=== PATIENT | male | born 1990 | race African-American/Black ===

== ENCOUNTER 2017-10-23 04:13 | Emergency (ER) | payer OTHER ==
[~2017-10-23] VITALS: Ht 175.3 cm; Wt 74.8 kg
[2017-10-23] MEDS ORDERED: REMERON15 MG PO (04:23)
[2017-10-23 04:48] LABS: HEMATOCRIT 45.1 % (42.0-52.0); MCH 30.5 pg (26.0-34.0); MCHC 35.5 g/dL (28.0-37.0); MCV 85.9 fL (80.0-100.0); RBC 5.25 mil/uL (4.50-6.00); RDW 13.8 % (10.5-14.5); WBC 7.4 thou/uL (4.0-11.0)
[2017-10-23 04:52] LABS: CALCIUM 8.9 mg/dL (8.5-10.1); POTASSIUM 3.7 mmol/L (3.5-5.1)
[2017-10-23 04:58] LABS: ALBUMIN 4.1 g/dL (3.4-5.0); TOTAL BILIRUBIN 0.7 mg/dL (<0.1-1.0); TOTAL PROTEIN 7.9 g/dL (6.4-8.2)
[2017-10-23 05:25] VITALS: BP 117/61
== END 2017-10-23 05:25 | disposition home or self-care (01) ==
LOC: ER 04:13
PROVIDERS: Emergency Medicine
DX: F10.129 Alcohol abuse with intoxication, unspecified (principal); F43.0 Acute stress reaction; F41.0 Panic disorder [episodic paroxysmal anxiety]; F17.200 Nicotine dependence, unspecified, uncomplicated

== ENCOUNTER 2020-10-12 07:15 | Emergency (ER) | payer OTHER ==
[~2020-10-12] VITALS: Ht 175.3 cm; Wt 77.1 kg
[~2020-10-12 07:15] MED LIST: REMERON15 MG PO
[2020-10-12 07:48] LABS: ABSOLUTE NEUTROPHILS 2.1 thou/uL (1.4-8.2); BASOPHILS 0.8 % (0.0-2.0); EOSINOPHILS 1.3 % (0.0-3.0); HEMATOCRIT 46.8 % (42.0-52.0); HEMOGLOBIN 16.2 gm/dL (14.0-18.0); LYMPHOCYTES 33.6 % (24.0-44.0); MCH 30.4 pg (26.0-34.0); MCHC 34.6 g/dL (28.0-37.0); MCV 87.8 fL (80.0-100.0); MONOCYTES 16.7 % (1.0-8.0); PLATELET COUNT 213 thou/uL (150-400); POLYS 47.6 % (36.0-66.0); RBC 5.33 mil/uL (4.50-6.00); RDW 14.1 % (10.5-14.5); WBC 4.5 thou/uL (4.0-11.0)
[2020-10-12 07:54] LABS: ANION GAP 10 mmol/L (7-16); BUN 11 mg/dL (7-18); CHLORIDE 101 mmol/L (98-107); CO2 26 mmol/L (21-32); CREATININE 0.9 mg/dL (0.7-1.3); GLUCOSE 101 mg/dL (74-106); POTASSIUM 4.1 mmol/L (3.5-5.1); SODIUM 137 mmol/L (136-145)
[2020-10-12 08:03] LABS: MAGNESIUM 1.9 mg/dL (1.8-2.4); TROPONIN-I <0.06 ng/mL (<0.06)
[2020-10-12 08:25] VITALS: BP 136/97
--- NOTE | 2020-10-12 08:38 | EKG ---
[place] [address] [facility] [email or web address] [address] ELECTROCARDIOGRAM REPORT Name: CHICHO PARHAM Room #: REG ALEX Martínez#: [id number] Admission: 10/12/20 Attend Phys: Discharge: Date of : 86 Report #: [id number] [facility] ED Test Date: 2020-10-12 Test Time: 07:16:54 Pat Name: CHICHO PARHAM Department: Room: Gender: M Radio/Tv Technician: : 1990 Requested By: Gretchen Roblero Order Number: [id number] MD: Reyes Uriarte Measurements Intervals [place] Rate: 77 P: 31 [place]: 124 QRS: 75 QRSD: 100 T: -67 QT: 385 QTc: 436 Interpretive Statements Sinus rhythm Abnormal T, consider ischemia, diffuse leads Borderline ST elevation, anterior leads No previous ECG available for comparison Electronically Signed On 10-12-2020 8:38:41 CDT by Reyes Uriarte [email or web address] <ELECTRONICALLY SIGNED> By: Reyes Uriarte MD, [facility] 10/12/20 0838 0716 5 Reyes Uriarte MD, FAC /EPI
== END 2020-10-12 08:25 | disposition home or self-care (01) ==
LOC: ER 07:15
PROVIDERS: Emergency Medicine
DX: R53.83 Other fatigue (principal); F19.90 Other psychoactive substance use, unspecified, uncomplicated; Z79.899 Other long term (current) drug therapy; Z87.891 Personal history of nicotine dependence; Z72.89 Other problems related to lifestyle; Z13.6 Encounter for screening for cardiovascular disorders